=== PATIENT | male | born 1940 | race Caucasian/White ===

== ENCOUNTER 2016-10-27 20:37 | Observation (INO) | payer OTHER ==
[~2016-10-27] VITALS: Ht 175.3 cm; Wt 84.9 kg
[~2016-10-27 20:37] MED LIST: BAYER CHEWABLE81 MG PO; CIPRO500 MG PO; CITRATE OF MAG296 ML PO; DAILY VALUE1 EACH PO; HYDROCODON-ACE1 EAC8 PO; METOPROLOL SUC100 MG PO; NEXIUM40 MG PO; NORVASC10 MG PO; PROSTATE HEALT1 EAC1 PO; RESVERATROL PL1 EACH PO; VALSARTAN-HCTZ1 EAC3 PO; ZINC50 M1 PO
[2016-10-27 21:52] LABS: HEMATOCRIT 40.8 % (38.0-50.0); MCH 32.1 PG (29.0-34.0); MCHC 33.6 G/DL (30.0-36.0); MCV 95.6 FL (86-99); MEAN PLAT.VOLUME 9.1 uM^3 (9.0-12.4); PLATELET COUNT 198 K/uL (156-360); RBC DIS.WIDTH-CV 13.2 % (11.8-14.6); RBC DIS.WIDTH-SD 46.3 % (39-53); RED BLOOD COUNT 4.27 M/uL (4.00-5.50); WHITE BLOOD COUNT 4.7 K/uL (4.1-10.2)
[2016-10-27 22:05] LABS: CHLORIDE 99 mEq/L (99-109); POTASSIUM 3.4 mEq/L (3.7-5.4); SODIUM 138 mEq/L (136-147)
[2016-10-27 22:07] LABS: GLUCOSE 75 mg/dL (70-99)
[2016-10-27 22:08] LABS: ANION GAP 13 MEQ/L (2-14)
[2016-10-27 22:11] LABS: GFR ESTIMATE (CALCULATED) > 59 mL/min/
[2016-10-27 22:12] LABS: UREA NITROGEN (BUN) 15 mg/dL (9-23)
[2016-10-27 22:24] LABS: TROP-I INTERPRETATION NEGATIVE; TROPONIN-I 0.02 ng/mL (0.0-0.30)
[2016-10-27] MEDS ORDERED: LO-DOSE ASPIRIN81 M2 PO (22:52)
[2016-10-27] MEDS ORDERED: PRAVACHOL20 MG PO (22:53)
[2016-10-27] MEDS ORDERED: HERB-LAX PO (22:53)
[2016-10-27 23:00] LABS: INFLUENZA A VIRAL ANTIGEN NEGATIVE; INFLUENZA B VIRAL ANTIGEN POSITIVE
[2016-10-28 00:31] LABS: MAGNESIUM 1.5 mg/dL (1.3-2.7)
[2016-10-28 00:49] VITALS: BP 123/74
[2016-10-28 04:19] VITALS: BP 109/70
[2016-10-28] MEDS ORDERED: VENTOLIN HFA18 GM IH (10:58)
[2016-10-28] MEDS ORDERED: OSELTAMIVIR PHO30 MG PO (10:58)
[2016-10-28] MEDS ORDERED: XARELTO20 MG PO (10:58)
[2016-10-28 11:52] VITALS: BP 123/87
[2016-10-28 11:54] LABS: TROP-I INTERPRETATION NEGATIVE; TROPONIN-I 0.01 ng/mL (0.0-0.30)
== END 2016-10-28 14:00 | disposition home or self-care (01) ==
LOC: EME 20:37 → EDOF 23:21 → 5WEST 23:21 → EDOF 23:21 → 5WEST 10-28 00:36
PROVIDERS: Emergency Medicine; Physician Assistant Medical
DX: J10.1 Influenza due to other identified influenza virus with other respiratory manifestations (principal); E87.6 Hypokalemia; I48.91 Unspecified atrial fibrillation; I10 Essential (primary) hypertension; E78.5 Hyperlipidemia, unspecified; Z87.891 Personal history of nicotine dependence; E78.00 Pure hypercholesterolemia, unspecified
CPT/HCPCS: 71020; 80048; 83735; 84439; 84443; 84484; 85027; 87502; 93005; 93306; 99202; 99281; 99284; G0378; J1650; J3475; J3480

== ENCOUNTER 2016-12-06 17:00 | Emergency (ER) | payer OTHER ==
[~2016-12-06] VITALS: Ht 177.8 cm; Wt 83.0 kg
[~2016-12-06 17:00] MED LIST changes: +HERB-LAX PO; +LO-DOSE ASPIRIN81 M2 PO; +OSELTAMIVIR PHO30 MG PO; +PRAVACHOL20 MG PO; +VENTOLIN HFA18 GM IH; +XARELTO20 MG PO
[2016-12-06] MEDS ORDERED: NORCO 5/3251 TABLET PO (19:48)
[2016-12-06] MEDS ORDERED: KEFLEX500 MG PO (19:48)
[2016-12-06 21:18] VITALS: BP 123/90
== END 2016-12-06 21:31 | disposition home or self-care (01) ==
LOC: EME 17:00
PROC: 3E0234Z Introduction of Serum, Toxoid and Vaccine into Muscle, Percutaneous Approach (ICD-10-PCS; principal; 2016-12-06)
DX: S62.524B Nondisplaced fracture of distal phalanx of right thumb, initial encounter for open fracture (principal); S61.101A Unspecified open wound of right thumb with damage to nail, initial encounter; W17.89XA Other fall from one level to another, initial encounter; Z79.01 Long term (current) use of anticoagulants; Z23 Encounter for immunization; I10 Essential (primary) hypertension; I48.91 Unspecified atrial fibrillation; E78.5 Hyperlipidemia, unspecified; Z87.891 Personal history of nicotine dependence
CPT/HCPCS: 70450; 73130; 99281; 99285